=== PATIENT | male | born 1985 | race Asian ===

== ENCOUNTER 2017-01-27 18:04 | Inpatient (IN) | payer MEDICAID, OTHER ==
[~2017-01-27] VITALS: Ht 167.6 cm; Wt 108.9 kg
[~2017-01-27 18:04] MED LIST: DIGO250T4 PO; FURO-152 PO; LISI2.5T47 PO; METO25TA6 PO
[2017-01-27] MEDS ORDERED: ONDANSETRON HCL 4MG/2ML VIAL IV STA (18:25)
[2017-01-27 19:10] LABS: BASOPHILS % 1.1 % (0.0-2.0); EOSINOPHILS % 3.2 % (0.0-5.0); HEMATOCRIT. 40.5 % (42.0-52.0); HEMOGLOBIN. 13.8 g/dL (14.0-18.0); LYMPHOCYTES % 8.7 % (20.0-50.0); MEAN CORPUSCULAR HEMOGLOBIN 32.4 pg (28.0-32.0); MEAN CORPUSCULAR VOLUME 95.3 fL (80.0-94.0); MEAN PLATELET VOLUME 9.4 fl (7.4-10.4); MONOCYTES % 9.1 % (2.0-8.0); NEUTROPHILS % 77.9 % (40.0-76.0); PLATELET 66 x1000/uL (130-400); RED BLOOD CELL COUNT 4.25 mill/uL (4.7-6.1); RED CELL DISTRIBUTION WIDTH 14.9 % (11.6-14.6)
[2017-01-27 19:16] LABS: CLARITY URINE CLEAR (CLEAR); COLOR URINE DARK YELLOW (YELLOW); GLUCOSE URINE NEGATIVE (NEGATIVE); KETONES URINE NEGATIVE (NEGATIVE); LEUKOCYTE ESTERASE URINE TRACE (NEGATIVE); NITRITE URINE NEGATIVE (NEGATIVE); OCCULT BLOOD URINE NEGATIVE (NEGATIVE); PH URINE 6.5 (4.5-8.0); PROTEIN URINE 2+ (NEGATIVE); SPECIFIC GRAVITY URINE 1.018 (1.005-1.030)
[2017-01-27 19:16] LABS: CHLORIDE 103 mEq/L (98-107)
[2017-01-27 19:20] LABS: CARBON DIOXIDE 26 mEq/L (21-32)
[2017-01-27 19:21] LABS: D-DIMER 0.92 mg/L FEU (<0.50); INR 1.3; PARTIAL THROMBOPLASTIN TIME 32.5 sec (23.4-31.0); PROTHROMBIN TIME 13.9 sec (9.4-11.6)
[2017-01-27 19:24] LABS: TROPONIN I 0.08 ng/mL (0.00-0.04)
[2017-01-27] MEDS ORDERED: AMIODARONE HCL 150 MG in DEXT 5% WATER 100 ML IV ONE (20:45)
[2017-01-27] MEDS ORDERED: AMIODARONE HCL 900 MG in DEXT 5% WATER 482 ML IV PRN ×2 (21:15→22:15)
[2017-01-27] MEDS ORDERED: HYDROCODONE/ACETAMINOPHEN 5/325MG TABLET PO PRN (22:15)
[2017-01-27] MEDS ORDERED: ACETAMINOPHEN 325MG TABLET PO PRN (22:15)
[2017-01-27] MEDS ORDERED: MAGNESIUM/ALUMINUM HYDROXIDE/SIMETHICONE 30ML UDC PO PRN (22:15)
[2017-01-27] MEDS ORDERED: ONDANSETRON HCL 4MG/2ML VIAL IV PRN (22:15)
[2017-01-27] MEDS ORDERED: CLONIDINE 0.1MG TABLET PO PRN (22:15)
[2017-01-27] MEDS ORDERED: IPRATROPIUM/ALBUTEROL 0.5-3(2.5)MG/3ML NEB INH PRN (22:15)
[2017-01-27 23:18] LABS: CHLORIDE 105 mEq/L (98-107)
[2017-01-27 23:23] LABS: CARBON DIOXIDE 24 mEq/L (21-32)
[2017-01-27 23:59] LABS: CLARITY URINE CLEAR (CLEAR); COLOR URINE DARK YELLOW (YELLOW); GLUCOSE URINE NEGATIVE (NEGATIVE); KETONES URINE NEGATIVE (NEGATIVE); LEUKOCYTE ESTERASE URINE NEGATIVE (NEGATIVE); NITRITE URINE NEGATIVE (NEGATIVE); OCCULT BLOOD URINE NEGATIVE (NEGATIVE); PH URINE 6.5 (4.5-8.0); PROTEIN URINE 1+ (NEGATIVE); SPECIFIC GRAVITY URINE 1.016 (1.005-1.030)
[2017-01-28] VITALS (49 sets, daily range): BP systolic 101–128; BP diastolic 64–97
[2017-01-28 00:14] LABS: *AMPHETAMINES SCREEN URINE NEGATIVE (NEGATIVE); *BARBITURATES SCREEN URINE NEGATIVE (NEGATIVE); *BENZODIAZEPINES SCREEN URINE NEGATIVE (NEGATIVE); *COCAINE SCREEN URINE NEGATIVE (NEGATIVE); CANNABINOID URINE SCREEN NEGATIVE (NEGATIVE); METHADONE URINE SCREEN NEGATIVE (NEGATIVE); OPIATES URINE SCREEN NEGATIVE (NEGATIVE); PHENCYCLIDINE URINE SCREEN NEGATIVE (NEGATIVE)
[2017-01-28 05:22] LABS: BASOPHILS % 1.2 % (0.0-2.0); EOSINOPHILS % 2.4 % (0.0-5.0); HEMATOCRIT. 40.1 % (42.0-52.0); HEMOGLOBIN. 13.6 g/dL (14.0-18.0); LYMPHOCYTES % 10.1 % (20.0-50.0); MEAN CORPUSCULAR HEMOGLOBIN 32.4 pg (28.0-32.0); MEAN CORPUSCULAR VOLUME 95.2 fL (80.0-94.0); MEAN PLATELET VOLUME 8.6 fl (7.4-10.4); MONOCYTES % 7.4 % (2.0-8.0); NEUTROPHILS % 78.9 % (40.0-76.0); PLATELET 63 x1000/uL (130-400); RED BLOOD CELL COUNT 4.21 mill/uL (4.7-6.1); RED CELL DISTRIBUTION WIDTH 15.1 % (11.6-14.6)
[2017-01-28 05:30] LABS: CREATINE KINASE MB FRACTION 5.8 ng/mL (0.5-3.6); TROPONIN I 0.27 ng/mL (0.00-0.04)
[2017-01-28] MEDS: METOPROLOL TARTRATE 25MG TABLET PO SCH ×2 (09:11→20:38)
[2017-01-28] MEDS: AMIODARONE HCL 200 MG TABLET PO SCH ×2 (09:11→20:39)
[2017-01-28] MEDS: MAGNESIUM OXIDE 400MG TABLET PO SCH (12:03)
[2017-01-28 15:50] LABS: CREATINE KINASE MB FRACTION 4.2 ng/mL (0.5-3.6); TROPONIN I 0.16 ng/mL (0.00-0.04)
[2017-01-28] MEDS ORDERED: MAGNESIUM CHELATED (16:30)
[2017-01-28] MEDS ORDERED: PACERONE PO (16:30)
[2017-01-29] VITALS (20 sets, daily range): BP systolic 93–125; BP diastolic 53–83
[2017-01-29 07:06] LABS: EOSINOPHILS % 3.1 % (0.0-5.0); HEMATOCRIT. 40.4 % (42.0-52.0); HEMOGLOBIN. 13.8 g/dL (14.0-18.0); LYMPHOCYTES % 10.7 % (20.0-50.0); MEAN CORPUSCULAR VOLUME 96.3 fL (80.0-94.0); MEAN PLATELET VOLUME 9.8 fl (7.4-10.4); MONOCYTES % 11.1 % (2.0-8.0); NEUTROPHILS % 74.1 % (40.0-76.0); PLATELET 64 x1000/uL (130-400); RED BLOOD CELL COUNT 4.19 mill/uL (4.7-6.1); RED CELL DISTRIBUTION WIDTH 15.3 % (11.6-14.6)
[2017-01-29 07:17] LABS: CHLORIDE 102 mEq/L (98-107)
[2017-01-29 07:30] LABS: CARBON DIOXIDE 22 mEq/L (21-32); TROPONIN I 0.15 ng/mL (0.00-0.04)
[2017-01-29] MEDS: MAGNESIUM OXIDE 400MG TABLET PO SCH (07:42)
[2017-01-29] MEDS: METOPROLOL TARTRATE 25MG TABLET PO SCH ×2 (07:42→21:00)
[2017-01-29] MEDS ORDERED: MEXILETINE HCL 150MG CAPSULE PO ONE (09:00)
[2017-01-29] MEDS ORDERED: MEXILETINE HCL 200 MG CAPSULE PO SCH (09:00)
[2017-01-29] MEDS ORDERED: MEXILETINE HCL 150MG CAPSULE PO SCH (09:00)
[2017-01-29] MEDS: MEXILETINE HCL 150MG CAPSULE PO SCH ×3 (10:08→21:45)
[2017-01-30] VITALS (11 sets, daily range): BP systolic 97–122; BP diastolic 59–91
[2017-01-30] MEDS: MEXILETINE HCL 150MG CAPSULE PO SCH ×3 (06:00→21:08)
[2017-01-30 06:59] LABS: EOSINOPHILS % 3.3 % (0.0-5.0); HEMATOCRIT. 38.7 % (42.0-52.0); HEMOGLOBIN. 13.1 g/dL (14.0-18.0); LYMPHOCYTES % 13.1 % (20.0-50.0); MEAN CORPUSCULAR HEMOGLOBIN 32.7 pg (28.0-32.0); MEAN CORPUSCULAR VOLUME 96.2 fL (80.0-94.0); MEAN PLATELET VOLUME 10.2 fl (7.4-10.4); MONOCYTES % 11.8 % (2.0-8.0); NEUTROPHILS % 70.8 % (40.0-76.0); PLATELET 59 x1000/uL (130-400); RED BLOOD CELL COUNT 4.02 mill/uL (4.7-6.1); RED CELL DISTRIBUTION WIDTH 15.5 % (11.6-14.6)
[2017-01-30 07:40] LABS: CHLORIDE 103 mEq/L (98-107)
[2017-01-30 07:51] LABS: CARBON DIOXIDE 24 mEq/L (21-32)
[2017-01-30] MEDS: METOPROLOL TARTRATE 25MG TABLET PO SCH ×2 (09:04→21:07)
[2017-01-30] MEDS: MAGNESIUM OXIDE 400MG TABLET PO SCH (09:04)
[2017-01-31] VITALS (12 sets, daily range): BP systolic 96–123; BP diastolic 49–89
[2017-01-31] MEDS: MEXILETINE HCL 150MG CAPSULE PO SCH ×3 (05:58→21:31)
[2017-01-31] MEDS: MAGNESIUM OXIDE 400MG TABLET PO SCH (09:03)
[2017-01-31] MEDS: METOPROLOL TARTRATE 25MG TABLET PO SCH ×2 (09:03→21:31)
[2017-01-31] MEDS: SPIRONOLACTONE 25MG TABLET PO SCH (13:12)
[2017-01-31] MEDS: FUROSEMIDE 20MG TABLET PO SCH (13:12)
[2017-02-01] VITALS (15 sets, daily range): BP systolic 89–121; BP diastolic 51–73
[2017-02-01] MEDS: MEXILETINE HCL 150MG CAPSULE PO SCH ×3 (06:38→22:41)
[2017-02-01 07:47] LABS: BASOPHILS % 1.1 % (0.0-2.0); EOSINOPHILS % 3.5 % (0.0-5.0); HEMOGLOBIN. 12.9 g/dL (14.0-18.0); LYMPHOCYTES % 12.3 % (20.0-50.0); MEAN CORPUSCULAR HEMOGLOBIN 32.6 pg (28.0-32.0); MEAN CORPUSCULAR VOLUME 95.6 fL (80.0-94.0); MEAN PLATELET VOLUME 9.9 fl (7.4-10.4); MONOCYTES % 9.5 % (2.0-8.0); NEUTROPHILS % 73.6 % (40.0-76.0); PLATELET 67 x1000/uL (130-400); RED BLOOD CELL COUNT 3.97 mill/uL (4.7-6.1); RED CELL DISTRIBUTION WIDTH 14.9 % (11.6-14.6)
[2017-02-01 07:53] LABS: CARBON DIOXIDE 25 mEq/L (21-32); CHLORIDE 104 mEq/L (98-107)
[2017-02-01] MEDS: FUROSEMIDE 20MG TABLET PO SCH (09:15)
[2017-02-01] MEDS: SPIRONOLACTONE 25MG TABLET PO SCH (09:15)
[2017-02-01] MEDS: METOPROLOL TARTRATE 25MG TABLET PO SCH ×2 (09:16→21:04)
[2017-02-01] MEDS: MAGNESIUM OXIDE 400MG TABLET PO SCH (09:16)
[2017-02-02] VITALS (10 sets, daily range): BP systolic 96–139; BP diastolic 45–88
[2017-02-02] MEDS: MEXILETINE HCL 150MG CAPSULE PO SCH ×2 (06:00→14:16)
[2017-02-02 07:15] LABS: CARBON DIOXIDE 25 mEq/L (21-32); CHLORIDE 105 mEq/L (98-107)
[2017-02-02] MEDS ORDERED: PROPOFOL 200MG/20ML VIAL IV ONE (07:38)
[2017-02-02] MEDS ORDERED: MIDAZOLAM HCL 2 MG/2 ML VIAL ONE (07:42)
[2017-02-02 12:04] LABS: BASOPHILS % 1.2 % (0.0-2.0); EOSINOPHILS % 3.7 % (0.0-5.0); HEMATOCRIT. 40.5 % (42.0-52.0); HEMOGLOBIN. 13.5 g/dL (14.0-18.0); LYMPHOCYTES % 12.5 % (20.0-50.0); MEAN CORPUSCULAR HEMOGLOBIN 32.3 pg (28.0-32.0); MEAN PLATELET VOLUME 9.8 fl (7.4-10.4); MONOCYTES % 9.4 % (2.0-8.0); NEUTROPHILS % 73.2 % (40.0-76.0); PLATELET 65 x1000/uL (130-400); RED BLOOD CELL COUNT 4.18 mill/uL (4.7-6.1); RED CELL DISTRIBUTION WIDTH 15.3 % (11.6-14.6)
[2017-02-02] MEDS ORDERED: METO25TA6 PO (12:04)
[2017-02-02] MEDS ORDERED: FURO20TA4 PO (12:04)
[2017-02-02] MEDS ORDERED: SPIR25TA PO (12:04)
[2017-02-02] MEDS ORDERED: MEX150 PO (12:04)
[2017-02-02] MEDS: SPIRONOLACTONE 25MG TABLET PO SCH (12:08)
[2017-02-02] MEDS: MAGNESIUM OXIDE 400MG TABLET PO SCH (12:08)
[2017-02-02] MEDS: METOPROLOL TARTRATE 25MG TABLET PO SCH (12:09)
[2017-02-02] MEDS: FUROSEMIDE 20MG TABLET PO SCH (12:09)
== END 2017-02-02 18:13 | disposition home or self-care (01) | DRG 201 ==
LOC: ER 18:43 → EDBEDREQ 20:46 → ENRESERV 20:48 → CANRESERV 20:48 → EDBEDREQSVC 21:18 → EDBEDREQ 21:18 → CANRESERV 21:27 → ENRESERV 21:27 → EDBEDREQSVC 01-28 00:52 → ENRESERV 01-28 05:16 → MICUNO 01-28 07:09 → 3WST 01-28 21:12
PROVIDERS: ADMIT Internal Medicine; ATTEND Internal Medicine
PROC: 07DQ3ZX Extraction of Sternum Bone Marrow, Percutaneous Approach, Diagnostic (ICD-10-PCS; principal; 2017-02-02 07:30)
DX: I47.1 Supraventricular tachycardia (principal); I42.0 Dilated cardiomyopathy; D69.6 Thrombocytopenia, unspecified; I11.0 Hypertensive heart disease with heart failure; I50.22 Chronic systolic (congestive) heart failure; I27.2 Other secondary pulmonary hypertension; R16.2 Hepatomegaly with splenomegaly, not elsewhere classified; I73.9 Peripheral vascular disease, unspecified; Z95.810 Presence of automatic (implantable) cardiac defibrillator; D63.8 Anemia in other chronic diseases classified elsewhere; E87.6 Hypokalemia; I44.30 Unspecified atrioventricular block
CPT/HCPCS: 36415; 38220; 71010; 76700; 80048; 80053; 80061; 80305; 81001; 82550; 82553; 83605; 83690; 83735; 83880; 84443; 84484; 85025; 85060; 85097; 85379; 85610; 85730; 87040; 88313; 93005; 93306; 93970; 96365; 99285; C1893; J0282; J2250; J2405; J2704; J7060; J7620